=== PATIENT | female | born 1995 | race Caucasian/White ===

== ENCOUNTER → 2019-12-15 13:16 | Outpatient (BNVA) | payer BC, SELFPAY | PROVIDERS: Visit Provider Obstetrics & Gynecology | DX: Z32.01 Encounter for pregnancy test, result positive (principal) | CPT/HCPCS: 81025 ==

== ENCOUNTER → 2019-12-23 09:06 | Outpatient (BNVA) | payer BC, SELFPAY | PROVIDERS: Visit Provider Nurse Practitioner Women's Health | DX: O09.299 Supervision of pregnancy with other poor reproductive or obstetric history, unspecified trimester (principal) | CPT/HCPCS: 84315; 84702 ==

== ENCOUNTER → 2020-01-20 15:02 | Outpatient (BNVA) | payer BC, SELFPAY | PROVIDERS: Visit Provider Obstetrics & Gynecology | DX: Z34.80 Encounter for supervision of other normal pregnancy, unspecified trimester (principal) | CPT/HCPCS: 80053; 80307; 84315; 85027; 86592; 86762; 86803; 86850; 86900; 87340; 87806 ==

== ENCOUNTER → 2020-02-03 13:17 | Outpatient (BNVA) | payer BC, SELFPAY | PROVIDERS: Visit Provider Obstetrics & Gynecology | DX: Z34.81 Encounter for supervision of other normal pregnancy, first trimester (principal) | CPT/HCPCS: 84315; 87210; 87491; 87591 ==

== ENCOUNTER → 2020-03-30 15:56 | Outpatient (BNVA) | payer BC, SELFPAY | PROVIDERS: Visit Provider Obstetrics & Gynecology | DX: Z34.92 Encounter for supervision of normal pregnancy, unspecified, second trimester (principal) | CPT/HCPCS: 76805 ==

== ENCOUNTER → 2020-05-25 09:51 | Outpatient (BNVA) | payer BC, SELFPAY | PROVIDERS: Visit Provider Obstetrics & Gynecology | DX: Z34.82 Encounter for supervision of other normal pregnancy, second trimester (principal) | CPT/HCPCS: 82950; 84315; 85027 ==

== ENCOUNTER → 2020-07-21 08:04 | Outpatient (BNVA) | payer BC, SELFPAY | PROVIDERS: Visit Provider Obstetrics & Gynecology | DX: Z34.83 Encounter for supervision of other normal pregnancy, third trimester (principal) | CPT/HCPCS: 84315; 87081 ==

== ENCOUNTER → 2020-08-10 11:35 | Outpatient (BNVA) | payer BC, SELFPAY | PROVIDERS: Visit Provider Obstetrics & Gynecology | DX: Z34.83 Encounter for supervision of other normal pregnancy, third trimester (principal) | CPT/HCPCS: 84315; 87635 ==

== ENCOUNTER 2020-08-12 09:26 | Inpatient (IN) | payer BC, SELFPAY ==
[2020-08-12] VITALS (48 sets, daily range): BP systolic 105–154; BP diastolic 57–105; PULSE 65–126; RESP 18; TEMP 36.4; O2SAT 94–100; BMI 33.0
--- NOTE | 2020-08-12 09:40 | ANES.PREANE2 ---
Pre-Anesthetic Assessment Pre-Anesthetic Assessment: Height/Weight: Height 1.75 m Temp Pulse BP 97.5 F L 107 H 127/95 08/12/20 08:58 08/12/20 09:21 08/12/20 09:21 Was Beta Tricia taken within 24 hours: N/A Was Clonidine taken within 24 hours: N/A Social: Social History: No alcohol and No tobacco Exam: Pre-Anes Outpt Exam: alert, oriented x 3, clear to auscultation bilaterally and regular rate & rhythm Airway: Submandibular: WNL Cervical ROM: WNL MP: 2 Dentition: Full History/ROS: No significant history except as noted Anesthetic Plan: ASA status: 2 Anesthesia: Regional (specify below) (Labor epidural) Risk of > 500 ml blood loss (7ml/kg in children): No PFSH Anesthesia PFSH: Medical History No pertinent past medical history neghx: dm,htn,thyroid,DVT/PE, herpes Partner with herpes Obesity Surgical History No pertinent past surgical history Family History Family/Other Diabetes Maternal aunt Social History (Updated 08/11/20 @ 15:51 by Cecilio Landeros MD) Smoking and tobacco status: never smoked Alcohol intake: never Data Anesthesia Cardiac Studies: No Data to Display
[2020-08-12] MEDS: lactated ringers 1,000 ML 999 ML IV (10:16)
--- NOTE | 2020-08-12 10:34 | PC.NURSE ---
When patient was transferred from OB13 to OB3 at 927, there was miscommunication between [facility] and [facility] between the times of [id number].
--- NOTE | 2020-08-12 10:37 | PC.NURSE ---
At 0926 Patient was removed from strip and transferred to room OB3.
[2020-08-12 10:54] LABS: Basophils % 0.2 %; Eosinophils % 0.4 %; Hematocrit 35.8 % (37.0-47.0); Hemoglobin 12.1 g/dL (11.5-15.3); Lymphocytes # 1.8 10^3/uL (0.8-4.8); Lymphocytes % 18.5 %; Mean Corpuscular HGB Conc 33.8 g/dL (30.0-36.0); Mean Corpuscular Hemoglobin 29.6 pg (28.0-34.0); Mean Corpuscular Volume 87.5 fL (81-99); Mean Platelet Volume 11.7 fL (7.4-10.4); Monocytes # 0.4 10^3/uL (0.2-0.9); Monocytes % 3.9 %; Neutrophils # 7.34 10^3/uL (1.8-7.7); Neutrophils % 76.3 %; Nucleated Red Blood Cells % 0 %; Platelet Count 187 10^3/cmm (130-400); Red Blood Count 4.09 10^6/uL (4.1-5.3); Red Cell Distribution Width 13.4 % (12.1-15.1); White Blood Count 9.6 10^3/uL (4.0-10.0)
[2020-08-12] MEDS: dextrose 5%-lactated ringers 1,000 ML 125 ML IV (11:12)
[2020-08-12] MEDS: oxytocin 30 UNIT/500 ML BAG 600 UNIT IV (14:11)
--- NOTE | 2020-08-12 14:42 | PM.DELIVERY ---
Delivery Note: Date of delivery: August 12, 2020 Pre-delivery diagnoses: Term Post-delivery diagnoses: Term delivered Procedure: Spontaneous vaginal delivery Op report anesthesia: Epidural Delivering Physician: Paulino Capellan MD Estimated blood loss (mL): 300 Findings: Female Apgars 8 9 with a birthweight at Pre-Delivery Course: 24 year old, 2, Para 1-0-0-1 with a LMP of 10/23/2019 and an JOSELITO of 08/16/2020 based on 6-week ultrasound, placing her at 39+3/7 weeks who has been receiving care from [facility]. Came to labor and delivery referring rupture membranes at 7 AM. She has been experiencing painful uterine contractions for the past 4 hours. The contractions are occurring at 4 minute intervals with approximately 30 second duration. She continues to feel movement between the contractions. She denies vaginal bleeding CC: Onset of labor at term. HPI: Received appropriate care. has been complicated by obesity. daily vitamins since start of care. labs have all been normal, including negative for HIV. She was found to negative for Group B Strep from screening at 36 weeks. She has lost approximately 12 lbs throughout the . She denies a history of HTN during . Glucose tolerance screening for gestational diabetes was negative. Delivery: The patient was noted to be complete and pushing, so was placed in the dorsal lithotomy position, prepped and draped in the usual sterile fashion for a vaginal delivery. Pt. Noted to have epidural anesthesia. At 1359 the patient delivered a viable term female infant weighing 3460 g with scores of 9 and 9 at one and five minutes, respectively. The vertex was delivered spontaneously over an intact perineum. The patient was asked to push and the head delivered spontaneously in the occiput posterior position, over an intact perineum. A nuchal cord was checked and none noted. The anterior shoulder delivered easily and the posterior shoulder followed. The remainder of the was easily delivered and the oropharynx and nasopharynx was bulb suctioned. The was noted to have spontaneous cry and spontaneous movement of all four extremities. The cord was clamped x 2 and cut and noted to have 2 arteries and one vein. The infant was passed to the mother's abdomen where drapery rod assembler and nursing personnel were in attendance. The placenta delivered intact spontaneously and the uterus was explored. 20 units of Pitocin was placed in the IV bag to firm the uterus. Examination of the cervix and vaginal vault did not reveal any lacerations. A vaginal pack was then placed. Examination of the perineum showed first-degree laceration noted. The laceration did not require suturing. The vaginal pack was then removed. The patient tolerated this procedure well, and recovered in L&D with her in their LDR room. All sponge and needle counts were correct. Post-Delivery Status: Good and stable A&P Assessment and plan (1) Term delivered: Status: Acute Coding Level of Care Code Acute Supervisor Litharge for Chg Fwd Diagnoses Term delivered O80
[2020-08-12] MEDS: ibuprofen 800 mg tablet PO (16:41)
--- NOTE | 2020-08-12 17:57 | PC.NURSE ---
Patient arrived to unit at 0839 and was in room OB13. She was placed on external monitors within 10 minutes. Patient was removed from monitors and transferred to OB3 and placed back on external monitors at 0900. Due to a miscommunication between [facility] and [facility] heart tones, contraction pattern, and vital signs was not captured.
[2020-08-13 02:56] LABS: Hematocrit 31.6 % (37.0-47.0); Hemoglobin 10.7 g/dL (11.5-15.3); Mean Corpuscular HGB Conc 33.9 g/dL (30.0-36.0); Mean Corpuscular Hemoglobin 29.7 pg (28.0-34.0); Mean Corpuscular Volume 87.8 fL (81-99); Mean Platelet Volume 11.7 fL (7.4-10.4); Platelet Count 187 10^3/cmm (130-400); Red Cell Distribution Width 13.4 % (12.1-15.1); White Blood Count 12.8 10^3/uL (4.0-10.0)
[2020-08-13 04:48] VITALS: BP 136/83; PULSE 57
[2020-08-13] MEDS: prenatal vitamin Capsule 1 CAP PO (09:34)
[2020-08-13] MEDS: docusate sodium 100 mg Capsule PO (09:34)
[2020-08-13] MEDS: ibuprofen 800 mg tablet PO (09:34)
[2020-08-13 10:00] VITALS: BP 128/80; PULSE 62; RESP 16; TEMP 36.6
--- NOTE | 2020-08-13 10:39 | P.DS_ITS ---
Discharge Providers ASSISTANT STATISTICIAN Date of Admission: 08/12/20 09:26 Date of Discharge: 08/13/20 Attending Provider at Admission: Paulino Capellan MD Attending Provider at Discharge: Paulino Capellan MD Diagnoses at Discharge Discharge Diagnosis (1) Obesity affecting : Status: Acute Qualifiers: Trimester: second trimester Qualified Code(s): O99.212 - Obesity co mplicating , second trimester (2) Supervision of normal : Status: Acute Qualifiers: Normal : other normal Trimester: third trimester Qualified Code(s): Z34.83 - Encounter for supervision of other normal , third trimester (3) Term delivered: Status: Acute Reason for Visit Reason for Visit: vaginal discharge Hospital Course Hospital Course 24 year old, 2, Para 1-0-0-1 with a LMP of 10/23/2019 and an JOSELITO of 08/16/2020 based on 6-week ultrasound, placing her at 39 3/7 weeks. Admitted to labor and delivery in active labor with spontaneous rupture membrane. She prog ressed to have a spontaneous vaginal delivery without complications. She delivered a female infant Apgars 9/9 with a weight of 3460 g. observation has been uneventful. She is afebrile hemodynamically stable. Tolerating diet well. Ambulating without difficulty. Information Peripartum Data: Delivery Method: Vaginal Physical Exam Narrative: EXAM NARRATIVE: GA; alert and oriented x 3 HEENT: normal Breasts: engorged Nipples - skin intact Lungs; clear to auscultation Heart: regular rhythm, no murmurs. Abd: Appropriately tender. BS+. Uterine fundus below umbilicus. No Fundal Tenderness. Perineum: normal lochia. Extremities: no edema, no cyanosis, no tenderness. Urinary Catheter Management^: [place]: Cath Placed During This Visit: yes, but has since been removed by the nurse Reason for Continuing Indwelling Catheter: Decision to DC Catheter Urinary Catheter Date of Insertion: 08/12/20 Urinary Catheter Time of Insertion: 11:45 Date Urinary Catheter Removed: 08/12/20 Time Urinary Catheter Discontinued: 12:30 Discharge Data Data Completed and Pending: Labs from last 24 hours 08/13/20 08/12/20 02:46 09:50 WBC 12.8 H 9.6 RBC 3.60 L 4.09 L Hgb 10.7 L 12.1 Hct 31.6 L 35.8 L MCV 87.8 87.5 MCH 29.7 29.6 MCHC 33.9 33.8 RDW 13.4 13.4 Plt Count 187 187 MPV 11.7 H 11.7 H Neut % (Auto) 76.3 Lymph % (Auto) 18.5 [place] % (Auto) 3.9 Eos % (Auto) 0.4 Baso % (Auto) 0.2 Neut # (Auto) 7.34 Lymph # (Auto) 1.8 [place] # (Auto) 0.4 Eos # (Auto) 0.0 Baso # (Auto) 0.0 Nucleated RBC % (a uto) 0 Nucleated RBCs # 0.0 Vitals: Last Vital Signs Temp 97.5 F L 08/12/20 08:58 Pulse 57 L 08/13/20 04:48 Resp 18 08/12/20 19:11 BP 136/83 08/13/20 04:48 Pulse Ox 99 08/12/20 11:40 Discharge Plan Discharge Patient Disposition: Home Condition: Stable Prescriptions: New ibuprofen 800 mg tablet 800 mg PO TID PRN (Reason: pain) Qty: 60 RF: 0 Iron (ferrous sulfate) 325 mg (65 mg iron) tablet 325 mg PO BID Qty: 60 RF: 0 Colace 100 mg capsule 100 mg PO BID Qty: 60 RF: 0 acetaminophen 325 mg capsule 325 mg PO Q4H PRN (Reason: fever or pain) Qty: 60 RF: 0 Continued prenat.vits,lei,[id number] Tablet 1 tab PO DAILY RF: 0 Discharge Orders: Discharge Order (Routine); Ordered 08/13/20 Ordered By: Paulino Capellan Referrals: Paulino Capellan MD [Physician] - Discharge Diet: Usual diet Discharge Activity: Increase activity as tolerated Patient Instructions: Your Baby (DC), and Nipple Soreness (GEN), How to Increase Your Milk Supply (DC), and Your Diet (GEN), OB Discharge Report, OB Food/Drug Interaction Guide, Opioid Safety, OB Proud Parent Packet, OB Vaginal Deliveries - [facility], Abnormal Bleeding, Depression Activity Restrictions/Additional Instructions: 1. Please call [facility] clinic on next working day to make your post appointment in 6 weeks. 2. Please stay home until you come back to the clinic on first post-operative check up. 3. Please follow instructions on your medications CAREFULLY. 4. If you have abdominal incision, do not cover it unless dressing is necessary because of drainage. OK to shower, but avoid bath. Leave steri-strips until they fall off. If they are still on one week after surgery, you may remove them. 5. If you had vaginal surgery or vaginal repair, Dr. Capellan may instruct you to take SITZ bath. 6. Yellow, blood tinged odorous vaginal discharge is usually normal after hysterectomy or vaginal surgeries. 7. No sexual intercourse, tampons, or douches until you are completely released from the post-operative care. 8. Avoid constipation by eating right and maybe using some Metamucil or Milk of Magnesia. 9. All prescription refills are given during the working hours. Please do no wait till it runs out. Call the clinic at [phone] before your medication runs out. The clinic will get in touch with your doctor to prescribe medications if necessary. 10. Please remain within 40 mile radius from our hospital because emergencies do happen now and then during the post-operative period. 11. If you have stairs at home, take one step at a time slowly and minimize the number of trips. It helps to stay in one floor for the next few days. No lifting except what you can lift by one hand until you are released from the post-operative care. 12. Driving is discouraged until you are well healed. It may be 3-4 weeks before you feel strong enough to drive. You should be able to turn and look through the rear window without pain and you should be able to push the brake pedal very hard without pain before you drive. No fast rules, but SAFETY should be your primary concern. DO NOT drive if you are on sedating medications such as narcotics. 13. Call the clinic (during working hours) to make urgent appointment or go to the Emergency room, if any of the following occurs: i. Vaginal bleeding becomes heavy, more than a period. ii. Incision becomes red and sore, or drains pus. iii. Your temperature is over 100.4 or you have chill. iv. IV site becomes red and swollen (a little ``knot?? is usually OK) v. Persistent nausea and vomiting vi. Persistent constipation or diarrhea vii. Rash or allergic reaction to medications. Discharge Attestations ASSISTANT STATISTICIAN Time Spent in Discharge Care*: greater than 30 min Coding Level of Care Code Acute Airflight Attendants Supervisor for g Fwd Diagnoses Obesity affecting O99.212 Trimester: second trimester Supervision of normal Z34.83 Normal : other normal Trimester: third trimester Term delivered O80
[2020-08-13 16:13] VITALS: BP 139/93; PULSE 77
[2020-08-13 16:15] VITALS: BP 139/93; PULSE 77; RESP 16; TEMP 36.6
== END 2020-08-13 16:20 | disposition home or self-care (01) | DRG 807 ==
LOC: OPOB 09:27 → OBGYN 09:27
PROVIDERS: Admitting Provider Obstetrics & Gynecology; Visit Provider Obstetrics & Gynecology
DX: O80 Encounter for full-term uncomplicated delivery (principal); Z37.0 Single live birth; Z3A.39 39 weeks gestation of pregnancy
CPT/HCPCS: 36415; 51702; 59025; 59409; 83986; 85025; 85027; 99211; J2795

== ENCOUNTER → 2020-10-04 14:32 | Outpatient (BNVA) | payer BC, SELFPAY | PROVIDERS: Visit Provider Nurse Practitioner Women's Health | DX: Z39.2 Encounter for routine postpartum follow-up | CPT/HCPCS: 88175 ==

== ENCOUNTER → 2020-10-13 15:07 | Outpatient (BNVA) | payer BC, SELFPAY | PROVIDERS: Visit Provider Nurse Practitioner Women's Health | DX: Z30.430 Encounter for insertion of intrauterine contraceptive device (principal); R87.610 Atypical squamous cells of undetermined significance on cytologic smear of cervix (ASC-US) | CPT/HCPCS: 81025 ==

== ENCOUNTER → 2024-01-15 15:56 | Outpatient (BNVA) | payer OTHER, SELFPAY | PROVIDERS: Visit Provider Nurse Practitioner Women's Health | DX: R87.610 Atypical squamous cells of undetermined significance on cytologic smear of cervix (ASC-US) (principal) | CPT/HCPCS: 87624 ==